=== PATIENT | male | born 1955 | race Two or more races ===

== ENCOUNTER 2019-07-27 22:00 | Inpatient (IN) | payer MEDICAID, OTHER ==
[~2019-07-27] VITALS: Ht 172.7 cm; Wt 76.2 kg
[2019-07-27] MEDS ORDERED: LABETALOL 5MG/ML SYR 20 MG/4 ML SYRINGE IV ONE (22:30)
[2019-07-27] MEDS ORDERED: ONDANSETRON HCL 4MG/2ML INJ ONE (22:38)
[2019-07-27 23:16] LABS: BASOPHILS % 0.4 % (0.0-2.0); EOSINOPHILS % 2.8 % (0.0-5.0); HEMATOCRIT. 35.1 % (42.0-52.0); HEMOGLOBIN. 12.3 g/dL (14.0-18.0); LYMPHOCYTES % 24.5 % (20.0-50.0); MEAN CORPUSCULAR HEMOGLOBIN 30.2 pg (28.0-32.0); MEAN CORPUSCULAR VOLUME 86.1 fL (80.0-94.0); MEAN PLATELET VOLUME 7.7 fl (7.4-10.4); MONOCYTES % 5.1 % (2.0-8.0); NEUTROPHILS % 67.2 % (40.0-76.0); PLATELET 222 x1000/uL (130-400); RED BLOOD CELL COUNT 4.08 mill/uL (4.7-6.1); RED CELL DISTRIBUTION WIDTH 14.7 % (11.6-14.6)
[2019-07-27 23:20] LABS: INR 0.9; PARTIAL THROMBOPLASTIN TIME 28.2 sec (23.4-31.0); PROTHROMBIN TIME 9.5 sec (9.6-11.0)
[2019-07-27 23:24] LABS: CHLORIDE 106 mEq/L (98-107)
[2019-07-27 23:29] LABS: ETHANOL BLOOD < 10 mg/dL
[2019-07-27 23:31] LABS: LDL CHOLESTEROL 99 mg/dL (5-100)
[2019-07-27] MEDS ORDERED: ONDANSETRON HCL 4MG/2ML INJ IV ONE ×2 (23:45)
[2019-07-28] VITALS (62 sets, daily range): BP systolic 140–192; BP diastolic 64–124
[2019-07-28] MEDS ORDERED: ONDANSETRON HCL 4MG/2ML INJ IV ONE
[2019-07-28] MEDS ORDERED: MORPHINE SULFATE 4 MG/ML CPJ (NOT FOR IM USE) IV ONE
[2019-07-28] MEDS ORDERED: HYDRALAZINE 20MG/ML VIAL IV ONE ×2 (00:45)
[2019-07-28] MEDS ORDERED: METOCLOPRAMIDE HCL 10MG/2ML VIAL IV ONE (00:45)
[2019-07-28] MEDS ORDERED: ASPIRIN 325MG EC TABLET PO ONE (01:30)
[2019-07-28] MEDS ORDERED: ASPIRIN 300MG SUPP PR ONE (02:30)
[2019-07-28] MEDS: HYDRALAZINE 20MG/ML VIAL IV SCH ×4 (04:00→21:26)
[2019-07-28] MEDS: ONDANSETRON HCL 4MG/2ML INJ IV SCH ×2 (04:00→09:45)
[2019-07-28] MEDS ORDERED: HYDRALAZINE 20MG/ML VIAL IV SCH (04:00)
[2019-07-28] MEDS ORDERED: IOHEXOL-350 100 ML BOTTLE ONE (04:00)
[2019-07-28 04:30] LABS: CLARITY URINE CLEAR (CLEAR); COLOR URINE YELLOW (YELLOW); KETONES URINE NEGATIVE (NEGATIVE); LEUKOCYTE ESTERASE URINE NEGATIVE (NEGATIVE); NITRITE URINE NEGATIVE (NEGATIVE); OCCULT BLOOD URINE 1+ (NEGATIVE); PH URINE 6.5 (4.5-8.0); PROTEIN URINE 4+ (NEGATIVE); SPECIFIC GRAVITY URINE 1.021 (1.005-1.030)
[2019-07-28] MEDS ORDERED: NICARDIPINE 40MG/200ML PREMIX 200 ML IV SCH (04:30)
[2019-07-28 04:44] LABS: HEMATOCRIT. 34.3 % (42.0-52.0); MEAN CORPUSCULAR VOLUME 85.4 fL (80.0-94.0); MEAN PLATELET VOLUME 7.7 fl (7.4-10.4); PLATELET 243 x1000/uL (130-400); RED BLOOD CELL COUNT 4.01 mill/uL (4.7-6.1)
[2019-07-28 04:47] LABS: CHLORIDE 106 mEq/L (98-107)
[2019-07-28 04:57] LABS: INR 0.9; PARTIAL THROMBOPLASTIN TIME 26.7 sec (23.4-31.0)
[2019-07-28 05:22] LABS: *AMPHETAMINES SCREEN URINE NEGATIVE (NEGATIVE); *BARBITURATES SCREEN URINE NEGATIVE (NEGATIVE); *BENZODIAZEPINES SCREEN URINE NEGATIVE (NEGATIVE); *COCAINE SCREEN URINE NEGATIVE (NEGATIVE); METHADONE URINE SCREEN NEGATIVE (NEGATIVE); OPIATES URINE SCREEN NEGATIVE (NEGATIVE)
[2019-07-28 05:23] LABS: CANNABINOID URINE SCREEN NEGATIVE (NEGATIVE); PHENCYCLIDINE URINE SCREEN NEGATIVE (NEGATIVE)
[2019-07-28 07:06] LABS: PLATELET ESTIMATE NORMAL
[2019-07-28] MEDS ORDERED: NICARDIPINE 100 MG in SODIUM CHLORIDE 0.9% 60 ML IV PRN ×2 (09:00→09:15)
[2019-07-28] MEDS ORDERED: NICARDIPINE 50 MG in SODIUM CHLORIDE 0.9% 230 ML IV PRN ×2 (09:00→09:30)
[2019-07-28] MEDS ORDERED: PANTOPRAZOLE SODIUM 40 MG/VIAL IV SCH (09:00)
[2019-07-28] MEDS ORDERED: ACETAMINOPHEN 650MG/20.3ML UDC PO PRN (09:15)
[2019-07-28] MEDS ORDERED: ACETAMINOPHEN 650MG SUPP PR PRN (09:30)
[2019-07-28] MEDS ORDERED: CEFTRIAXONE 500 MG in DEXTROSE 5% WATER 50 ML IV SCH (09:30)
[2019-07-28] MEDS: CEFTRIAXONE 1 G PREMIX 50 ML IV SCH (09:46)
[2019-07-28] MEDS: ASPIRIN 81MG TABLET PO SCH (09:46)
[2019-07-28] MEDS: SODIUM CHLORIDE 0.45% 1,000 ML IV SCH ×2 (09:47→23:23)
[2019-07-28 09:52] LABS: T4 FREE 1.35 ng/dL (0.76-1.46)
[2019-07-28] MEDS ORDERED: ASPIRIN 300MG SUPP PR PRN (10:15)
[2019-07-28] MEDS ORDERED: POTASSIUM CHLORIDE INJ 40 MEQ in DEXT 5% WATER 500 ML IV SCH (11:00)
[2019-07-28 11:42] LABS: BG BASE EXCESS -0.8 mmol/L (-2.0-2.0); BG CARBOXYHEMOGLOBIN 0.3 % (0.5-1.5); BG DEOXYHEMOGLOBIN 5.4 % (0.0-5.0); BG FRACTION INSPIRED OXYGEN 21; BG HCO3 ACT 22.1 mmol/L (22.0-26.0); BG METHEMOGLOBIN 0.3 % (0.0-1.5); BG OXYGEN SATURATION 94.6 % (92.0-98.5); BG PCO2 30.6 mmHg (35.0-45.0); BG PH 7.476 (7.350-7.450); BG PO2 74.6 mmHg (75.0-100.0); BG SAMPLE SITE RIGHT BRACHIAL; BG TOTAL HEMOGLOBIN 10.9 g/dL (12.0-18.0); BG VENT MODE ROOM AIR
[2019-07-28] MEDS ORDERED: ONDANSETRON HCL 4MG/2ML INJ IV PRN (12:15)
[2019-07-28] MEDS ORDERED: DEXTROSE 50% WATER 50ML SYRINGE IV PRN (12:15)
[2019-07-28] MEDS: CLOPIDOGREL 75MG TABLET PO SCH (12:59)
[2019-07-28] MEDS: FAMOTIDINE 20MG/2ML VIAL IV SCH ×2 (12:59→21:25)
[2019-07-28] MEDS: BLOOD SUGAR DIAGNOSTIC STRIP TEST SCH ×3 (12:59→21:25)
[2019-07-28] MEDS: INSULIN LISPRO 100 UNITS/ML SUBCUT SCH ×3 (13:00→21:30)
[2019-07-28] MEDS ORDERED: IPRATROPIUM/ALBUTEROL 0.5-3(2.5)MG/3ML NEB HHN PRN (14:00)
[2019-07-28 17:14] LABS: CREATINE KINASE MB FRACTION 5.9 ng/mL (0.5-3.6)
[2019-07-28] MEDS ORDERED: INFLUENZA VIRUS VACCINE(AFLURIA) 0.5ML SYR IM ONE (20:30)
[2019-07-28] MEDS: ATORVASTATIN CALCIUM 40MG TABLET PO SCH (21:25)
[2019-07-28] MEDS ORDERED: THIAMINE HCL 100 MG in SODIUM CHLORIDE 0.9% 49 ML IV NR (22:00)
[2019-07-28 23:47] LABS: CREATINE KINASE MB FRACTION 5.9 ng/mL (0.5-3.6)
[2019-07-29] VITALS (80 sets, daily range): BP systolic 141–198; BP diastolic 70–113
[2019-07-29] MEDS: HYDRALAZINE 20MG/ML VIAL IV SCH ×4 (04:21→22:05)
[2019-07-29 05:48] LABS: BASOPHILS % 0.1 % (0.0-2.0); HEMATOCRIT. 30.2 % (42.0-52.0); HEMOGLOBIN. 10.5 g/dL (14.0-18.0); LYMPHOCYTES % 8.3 % (20.0-50.0); MEAN CORPUSCULAR HEMOGLOBIN 30.2 pg (28.0-32.0); MEAN CORPUSCULAR VOLUME 86.9 fL (80.0-94.0); MEAN PLATELET VOLUME 7.9 fl (7.4-10.4); MONOCYTES % 4.2 % (2.0-8.0); NEUTROPHILS % 87.4 % (40.0-76.0); PLATELET 216 x1000/uL (130-400); RED BLOOD CELL COUNT 3.47 mill/uL (4.7-6.1); RED CELL DISTRIBUTION WIDTH 15.2 % (11.6-14.6)
[2019-07-29 05:57] LABS: CHLORIDE 107 mEq/L (98-107)
[2019-07-29 06:06] LABS: CREATINE KINASE 432 IU/L (39-308); CREATINE KINASE MB FRACTION 4.7 ng/mL (0.5-3.6); PHOSPHORUS 4.1 mg/dL (2.5-4.9)
[2019-07-29] MEDS: BLOOD SUGAR DIAGNOSTIC STRIP TEST SCH ×4 (06:27→21:00)
[2019-07-29] MEDS: INSULIN LISPRO 100 UNITS/ML SUBCUT SCH ×4 (06:28→22:31)
[2019-07-29] MEDS: CLOPIDOGREL 75MG TABLET PO SCH (09:58)
[2019-07-29] MEDS: ASPIRIN 81MG TABLET PO SCH (09:58)
[2019-07-29] MEDS: FAMOTIDINE 20MG/2ML VIAL IV SCH ×2 (09:58→22:03)
[2019-07-29] MEDS: CEFTRIAXONE 1 G PREMIX 50 ML IV SCH (10:16)
[2019-07-29] MEDS: NEOMYCIN/BACITRACIN/POLYMYXIN OINT 14GM TOP SCH (10:28)
[2019-07-29] MEDS: DEXT 5%/0.45% NACL 1000ML 1,000 ML IV SCH (13:11)
[2019-07-29] MEDS ORDERED: POTASSIUM CHLORIDE INJ 40 MEQ in DEXT 5% WATER 250 ML IV SCH (17:00)
[2019-07-29] MEDS ORDERED: MAGNESIUM 2 G PREMIX 50 ML IV SCH (17:00)
[2019-07-29] MEDS ORDERED: AMLO10TA80 MT (19:20)
[2019-07-29] MEDS ORDERED: HYDR-4135 MT (19:21)
[2019-07-29] MEDS ORDERED: LISI-604 MT (19:22)
[2019-07-29] MEDS ORDERED: ASPI-1497 MT (19:23)
[2019-07-29] MEDS ORDERED: LIP40 MT (19:24)
[2019-07-29] MEDS ORDERED: DOCU-138 MT (19:25)
[2019-07-29] MEDS ORDERED: METF-414 MT (19:26)
[2019-07-29] MEDS ORDERED: MECL-159 MT (19:28)
[2019-07-29] MEDS ORDERED: BUTA1CAP17 MT (19:30)
[2019-07-29] MEDS: ATORVASTATIN CALCIUM 40MG TABLET PO SCH (22:04)
[2019-07-29] MEDS: LEVETIRACETAM 500MG TABLET PO SCH (22:06)
[2019-07-30] VITALS (47 sets, daily range): BP systolic 82–179; BP diastolic 52–105
[2019-07-30] MEDS: HYDRALAZINE 20MG/ML VIAL IV SCH ×4 (04:09→20:59)
[2019-07-30 05:28] LABS: BASOPHILS % 0.5 % (0.0-2.0); EOSINOPHILS % 0.7 % (0.0-5.0); HEMATOCRIT. 32.1 % (42.0-52.0); HEMOGLOBIN. 11.2 g/dL (14.0-18.0); LYMPHOCYTES % 12.4 % (20.0-50.0); MEAN CORPUSCULAR HEMOGLOBIN 30.2 pg (28.0-32.0); MEAN CORPUSCULAR VOLUME 86.6 fL (80.0-94.0); MEAN PLATELET VOLUME 7.8 fl (7.4-10.4); MONOCYTES % 5.7 % (2.0-8.0); NEUTROPHILS % 80.7 % (40.0-76.0); PLATELET 212 x1000/uL (130-400); RED CELL DISTRIBUTION WIDTH 15.2 % (11.6-14.6)
[2019-07-30 05:35] LABS: CHLORIDE 107 mEq/L (98-107)
[2019-07-30] MEDS: BLOOD SUGAR DIAGNOSTIC STRIP TEST SCH ×5 (06:30→20:59)
[2019-07-30] MEDS: INSULIN LISPRO 100 UNITS/ML SUBCUT SCH ×5 (06:41→21:11)
[2019-07-30] MEDS: NEOMYCIN/BACITRACIN/POLYMYXIN OINT 14GM TOP SCH (09:00)
[2019-07-30] MEDS: ASPIRIN 81MG TABLET PO SCH (09:40)
[2019-07-30] MEDS: FAMOTIDINE 20MG/2ML VIAL IV SCH ×2 (09:40→21:10)
[2019-07-30] MEDS: CLOPIDOGREL 75MG TABLET PO SCH (09:40)
[2019-07-30] MEDS: LEVETIRACETAM 500MG TABLET PO SCH ×2 (09:40→20:59)
[2019-07-30] MEDS: DEXT 5%/0.45% NACL 1000ML 1,000 ML IV SCH (10:53)
[2019-07-30] MEDS: CEFTRIAXONE 1 G PREMIX 50 ML IV SCH (11:35)
[2019-07-30] MEDS: ATORVASTATIN CALCIUM 40MG TABLET PO SCH (20:59)
[2019-07-31] VITALS (11 sets, daily range): BP systolic 136–185; BP diastolic 72–98
[2019-07-31] MEDS: HYDRALAZINE 20MG/ML VIAL IV SCH ×4 (03:16→21:01)
[2019-07-31] MEDS: DEXT 5%/0.45% NACL 1000ML 1,000 ML IV SCH ×2 (03:17→17:54)
[2019-07-31] MEDS: BLOOD SUGAR DIAGNOSTIC STRIP TEST SCH ×4 (07:52→20:24)
[2019-07-31] MEDS: INSULIN LISPRO 100 UNITS/ML SUBCUT SCH ×4 (09:04→20:19)
[2019-07-31] MEDS: LEVETIRACETAM 500MG TABLET PO SCH ×2 (09:11→20:18)
[2019-07-31] MEDS: ASPIRIN 81MG TABLET PO SCH (09:11)
[2019-07-31] MEDS: CLOPIDOGREL 75MG TABLET PO SCH (09:11)
[2019-07-31] MEDS: FAMOTIDINE 20MG/2ML VIAL IV SCH ×2 (09:11→21:00)
[2019-07-31] MEDS: NEOMYCIN/BACITRACIN/POLYMYXIN OINT 14GM TOP SCH (12:07)
[2019-07-31] MEDS: CEFTRIAXONE 1 G PREMIX 50 ML IV SCH (12:50)
[2019-07-31] MEDS: AMLODIPINE 10MG TABLET PO SCH (19:03)
[2019-07-31] MEDS: ATORVASTATIN CALCIUM 40MG TABLET PO SCH (20:18)
[2019-07-31] MEDS: HYDRALAZINE HCL 50MG TABLET PO SCH (22:05)
[2019-07-31] MEDS: LISINOPRIL 20MG TABLET PO SCH (22:05)
[2019-07-31] MEDS: METFORMIN HCL 500MG TABLET PO SCH (22:06)
[2019-08-01] VITALS (10 sets, daily range): BP systolic 133–165; BP diastolic 50–99
[2019-08-01] MEDS: BLOOD SUGAR DIAGNOSTIC STRIP TEST SCH ×3 (07:28→16:47)
[2019-08-01] MEDS: INSULIN LISPRO 100 UNITS/ML SUBCUT SCH ×3 (08:00→16:50)
[2019-08-01] MEDS: METFORMIN HCL 500MG TABLET PO SCH ×2 (08:53→16:47)
[2019-08-01] MEDS: DEXT 5%/0.45% NACL 1000ML 1,000 ML IV SCH (08:54)
[2019-08-01] MEDS ORDERED: KEPP500 PO (09:14)
[2019-08-01] MEDS: LEVETIRACETAM 500MG TABLET PO SCH (09:46)
[2019-08-01] MEDS: AMLODIPINE 10MG TABLET PO SCH (09:46)
[2019-08-01] MEDS: LISINOPRIL 20MG TABLET PO SCH (09:46)
[2019-08-01] MEDS: ASPIRIN 81MG TABLET PO SCH (09:46)
[2019-08-01] MEDS: FAMOTIDINE 20MG/2ML VIAL IV SCH (09:46)
[2019-08-01] MEDS: HYDRALAZINE HCL 50MG TABLET PO SCH ×3 (09:46→16:47)
[2019-08-01] MEDS: NEOMYCIN/BACITRACIN/POLYMYXIN OINT 14GM TOP SCH (09:48)
[2019-08-01] MEDS: CLOPIDOGREL 75MG TABLET PO SCH (11:17)
[2019-08-01] MEDS: CEFTRIAXONE 1 G PREMIX 50 ML IV SCH (11:19)
== END 2019-08-01 17:20 | disposition home or self-care (01) | DRG 52 ==
LOC: ER 22:00 → MICUNO 07-28 01:23 → EDBEDREQSVC 07-28 04:27 → EDBEDREQTM 07-28 04:27 → ENRESERV 07-28 07:15 → CANRESERV 07-29 04:10 → 5EST 07-30 12:29
PROVIDERS: ADMIT Family Medicine; ATTEND Family Medicine
DX: G93.40 Encephalopathy, unspecified (principal); E11.51 Type 2 diabetes mellitus with diabetic peripheral angiopathy without gangrene; E44.0 Moderate protein-calorie malnutrition; E11.65 Type 2 diabetes mellitus with hyperglycemia; D64.9 Anemia, unspecified; E78.5 Hyperlipidemia, unspecified; I10 Essential (primary) hypertension; Z86.73 Personal history of transient ischemic attack (TIA), and cerebral infarction without residual deficits; I16.1 Hypertensive emergency; E87.6 Hypokalemia; R47.01 Aphasia; Z87.891 Personal history of nicotine dependence
CPT/HCPCS: 36415; 36600; 70496; 70498; 70551; 71045; 74018; 76700; 80048; 80053; 80061; 80305; 80320; 81003; 82140; 82375; 82550; 82553; 82805; 82962; 83036; 83520; 83721; 83735; 83880; 84100; 84145; 84439; 84443; 84484; 85025; 85379; 85651; 92610; 93005; 93306; 93970; 95816; 97110; 97116; 97162; 97166; 97530; 97535; 99291; C9113; J0360; J0696; J1815; J2270; J2405; J2765; J3411; J3475; J3480; J3490; J7060; Q9967; G0480